=== PATIENT | male | born 1990 | race Caucasian/White ===

== ENCOUNTER 2020-12-06 22:19 | Inpatient (IN) | payer OTHER ==
[~2020-12-06 22:19] MED LIST: Iopamidol-370 76% 500 ML 1 ML ONE
[2020-12-06] MEDS ORDERED: Boostrix 0.5 ML (Tdap) VIAL ONE ×2 (22:26→22:27)
[2020-12-06] MEDS ORDERED: ceFAZolin 2 GM/DEX 5% 100 ML BAG ONE (22:26)
[2020-12-06] MEDS ORDERED: Ondansetron PF 4 MG/2 ML Vial IVP PRN (22:41)
[2020-12-06] MEDS ORDERED: Morphine 4 MG/ML VIAL SLOW IVP PRN (22:41)
[2020-12-06] MEDS ORDERED: hydrALAZINE 20 MG/ML VIAL SLOW IVP PRN (22:41)
[2020-12-06] MEDS ORDERED: Dextrose 50% Abboject 50 ML SYRINGE SLOW IVP PRN (22:41)
[2020-12-06] MEDS ORDERED: Dextrose 5% in Water 1,000 ML IV PRN (22:41)
[2020-12-06] MEDS ORDERED: Cyclobenzaprine 10 MG TAB PO PRN (22:44)
[2020-12-06] MEDS ORDERED: traMADol HCl 50 MG TAB PO PRN (22:44)
[2020-12-06] MEDS ORDERED: Ketamine 50 MG/ML (10ML VIAL) ONE (22:50)
[2020-12-06 22:57] LABS: #Basophils 0.1 thou/uL (0.0-0.2); #Eosinphils 0.4 thou/uL (0.0-0.7); #Lymphocytes 3.5 thou/uL (1.20-3.40); #Monocytes 0.5 thou/uL (0.11-0.59); #Neutrophils 6.1 thou/uL (1.40-6.50); %Eosinophils 3.4 % (0.0-10.0); %Lymphocytes 33.2 % (21.0-51.0); %Monocytes 4.7 % (0.0-10.0); %Neutrophils 57.6 % (42.0-75.0); Hemoglobin 13.3 g/dL (14.0-18.0); Mean Corpuscular HGB CONC 34.8 g/dL (32.0-36.0); Mean Platelet Volume 5.8 fL (7.4-10.4); Platelet Count 360 thou/uL (130-400); RBC Distribution Width 10.9 % (11.5-14.5); Red Blood Cell (RBC) Count 4.03 mill/uL (4.70-6.10); White Blood Cell (WBC) Count 10.5 thou/uL (4.8-10.8)
[2020-12-06 23:07] LABS: INR-International Normal Ratio 1.1; Prothrombin Time 14.4 sec (12.0-14.7)
[2020-12-06 23:15] LABS: PTT 21.2 sec (22.9-36.1)
[2020-12-06 23:20] LABS: ALT (SGPT) 30 U/L (8-55); AST (SGOT) 28 U/L (5-34); Albumin 4.2 g/dL (3.5-5.0); Alcohol 279 mg/dL (Less than 10); Alkaline Phosphatase 55 U/L (40-110); Anion Gap 20 mmol/L (10-20); BUN (Urea Nitrogen) 6 mg/dL (8.9-20.6); Bilirubin, Total 0.4 mg/dL (0.2-1.2); Calc. Creatinine Clearance 0 mL/min (70-130); Calcium 8.7 mg/dL (7.8-10.44); Carbon Dioxide 17 mmol/L (22-29); Chloride 98 mmol/L (98-107); Globulin 2.5 g/dL (2.4-3.5); Glucose 159 mg/dL (70-105); Potassium 3.3 mmol/L (3.5-5.1); Protein, Total 6.7 g/dL (6.0-8.3); Sodium 132 mmol/L (136-145)
[2020-12-06 23:40] LABS: SARS-CoV-2 NAA Rapid Test Not Detected (NotDetected)
[2020-12-06] MEDS ORDERED: Potassium Chloride 40 MEQ in Premix Bag 1 BAG IVPB SCH (23:45)
[2020-12-07] MEDS: Acetaminophen 500 MG TAB PO SCH ×5 (01:00→23:55)
[2020-12-07] MEDS: Sodium Chloride 0.9% 1,000 ML IV SCH ×4 (01:00→23:58)
[2020-12-07] MEDS: Ketorolac Tromethamine 30 MG/ML VIAL IVP SCH ×5 (01:01→23:54)
[2020-12-07] MEDS: Potassium Chloride 20 MEQ in Premix Bag 1 BAG IVPB SCH ×2 (01:03→02:47)
[2020-12-07 01:26] VITALS: BMI 24.6
[2020-12-07 02:41] LABS: Lactic Acid 3.7 mmol/L (0.5-2.2)
[2020-12-07 04:28] LABS: Amphetamine Not Detected (NotDetected); Barbiturates Screen Not Detected (NotDetected); Benzodiazepine Screen Not Detected (NotDetected); Cocaine Metabolite Screen Not Detected (NotDetected); Methadone Not Detected (NotDetected); Methamphetamine Not Detected (NotDetected); Opiate Screen Not Detected (NotDetected); Oxycodone Screen Not Detected (NotDetected); Phencyclidine (PCP) Not Detected (NotDetected); THC/Cannabinoid Screen Not Detected (NotDetected); Tricyclic Screen Not Detected (NotDetected)
[2020-12-07] MEDS ORDERED: CEFAZOLIN 2 GM in Premix Bag 1 BAG IVPB SCH (06:00)
[2020-12-07] MEDS ORDERED: ceFAZolin Sodium/D5W 2 GM in Premix Bag 1 BAG IVPB SCH ×3 (06:00→20:00)
[2020-12-07 06:14] LABS: #Eosinphils 0.1 thou/uL (0.0-0.7); #Lymphocytes 2.8 thou/uL (1.20-3.40); #Neutrophils 9.1 thou/uL (1.40-6.50); %Basophils 0.3 % (0.0-1.0); %Eosinophils 0.4 % (0.0-10.0); %Lymphocytes 21.5 % (21.0-51.0); %Monocytes 7.8 % (0.0-10.0); Hemoglobin 13.3 g/dL (14.0-18.0); Mean Corpuscular HGB CONC 34.8 g/dL (32.0-36.0); Mean Corpuscular Hemoglobin 33.1 pg (27.0-31.0); Mean Platelet Volume 5.9 fL (7.4-10.4); Platelet Count 358 thou/uL (130-400); Red Blood Cell (RBC) Count 4.03 mill/uL (4.70-6.10); White Blood Cell (WBC) Count 13.1 thou/uL (4.8-10.8)
[2020-12-07 06:48] LABS: Anion Gap 17 mmol/L (10-20); BUN (Urea Nitrogen) 5 mg/dL (8.9-20.6); Calc. Creatinine Clearance 130 mL/min (70-130); Calcium 9.2 mg/dL (7.8-10.44); Carbon Dioxide 20 mmol/L (22-29); Chloride 106 mmol/L (98-107); Glucose 97 mg/dL (70-105); Magnesium 2.1 mg/dL (1.6-2.6); Phosphorus 3.5 mg/dL (2.3-4.7); Potassium 5.1 mmol/L (3.5-5.1); Sodium 138 mmol/L (136-145)
[2020-12-07] MEDS: Famotidine/PF 20 mg/2ml Vial SLOW IVP SCH ×2 (09:10→20:34)
[2020-12-07] MEDS: Polyethylene Glycol 3350 17 GM Packet PO SCH (09:18)
[2020-12-07] MEDS: Senokot S 8.6-50 MG TAB PO SCH ×2 (09:18→20:34)
[2020-12-07] MEDS: Gabapentin 300 MG CAP PO SCH ×3 (09:18→20:34)
[2020-12-07] MEDS ORDERED: Fentanyl 100 MCG/2 ML VIAL ONE ×3 (10:42→13:32)
[2020-12-07] MEDS ORDERED: Mineral Oil Sterile 10 ML VIAL ONE (10:53)
[2020-12-07] MEDS ORDERED: Neomycin-Polymyxin 1 ML AMP ONE ×2 (10:53→12:03)
[2020-12-07] MEDS ORDERED: ceFAZolin 2 GM/DEX 5% 100 ML BAG ONE (11:07)
[2020-12-07] MEDS ORDERED: Midazolam HCl 2 mg/2 ml Vial ONE (11:15)
[2020-12-07] MEDS ORDERED: Ketorolac Tromethamine 30 MG/ML VIAL ONE (11:32)
[2020-12-07] MEDS ORDERED: Ondansetron PF 4 MG/2 ML Vial ONE (11:32)
[2020-12-07] MEDS ORDERED: Dexamethasone 20 MG/5 ML VIAL ONE (11:32)
[2020-12-07] MEDS ORDERED: Lidocaine 1% PF 5 ML VIAL ONE (11:32)
[2020-12-07] MEDS ORDERED: PROPOFOL 200 MG/20 ML VIAL ONE (11:32)
[2020-12-07] MEDS ORDERED: Meperidine HCl/PF 25 MG/ML VIAL ONE (13:08)
[2020-12-07] MEDS ORDERED: Meperidine HCl/PF 25 MG/ML VIAL SLOW IVP PRN (13:12)
[2020-12-07] MEDS ORDERED: Promethazine HCl 25 MG/ML VIAL IVPB PRN (13:12)
[2020-12-07] MEDS ORDERED: Ondansetron HCl/PF 4 MG/2 ML Vial IVP PRN (13:12)
[2020-12-07] MEDS ORDERED: Promethazine HCl 25 MG/ML VIAL IM PRN (13:12)
[2020-12-07] MEDS: traMADol HCl 50 MG TAB PO PRN ×2 (15:31→22:20)
[2020-12-08 05:07] LABS: Anion Gap 9 mmol/L (10-20); BUN (Urea Nitrogen) 5 mg/dL (8.9-20.6); Calc. Creatinine Clearance 143 mL/min (70-130); Calcium 8.7 mg/dL (7.8-10.44); Carbon Dioxide 29 mmol/L (22-29); Chloride 104 mmol/L (98-107); Glucose 119 mg/dL (70-105); Magnesium 2.3 mg/dL (1.6-2.6); Phosphorus 2.8 mg/dL (2.3-4.7); Potassium 4.2 mmol/L (3.5-5.1); Sodium 138 mmol/L (136-145)
[2020-12-08 05:11] LABS: #Lymphocytes 1.5 thou/uL (1.20-3.40); #Monocytes 1.3 thou/uL (0.11-0.59); #Neutrophils 8.6 thou/uL (1.40-6.50); %Eosinophils 0.1 % (0.0-10.0); %Lymphocytes 12.9 % (21.0-51.0); %Monocytes 11.8 % (0.0-10.0); %Neutrophils 75.2 % (42.0-75.0); Hemoglobin 10.6 g/dL (14.0-18.0); Mean Corpuscular HGB CONC 34.9 g/dL (32.0-36.0); Mean Corpuscular Hemoglobin 33.8 pg (27.0-31.0); Mean Corpuscular Volume 96.9 fL (78.0-98.0); Mean Platelet Volume 6.3 fL (7.4-10.4); Platelet Count 294 thou/uL (130-400); Red Blood Cell (RBC) Count 3.13 mill/uL (4.70-6.10); White Blood Cell (WBC) Count 11.4 thou/uL (4.8-10.8)
[2020-12-08] MEDS: Sodium Chloride 0.9% 1,000 ML IV SCH (05:51)
[2020-12-08] MEDS: Acetaminophen 500 MG TAB PO SCH (05:52)
[2020-12-08] MEDS: Ketorolac Tromethamine 30 MG/ML VIAL IVP SCH (05:52)
[2020-12-08] MEDS ORDERED: CEFAZOLIN 2 GM in Premix Bag 1 BAG IVPB SCH (06:00)
[2020-12-08] MEDS: Gabapentin 300 MG CAP PO SCH (10:00)
[2020-12-08] MEDS: Senokot S 8.6-50 MG TAB PO SCH (10:00)
[2020-12-08] MEDS: Famotidine/PF 20 mg/2ml Vial SLOW IVP SCH (10:00)
[2020-12-08] MEDS: Polyethylene Glycol 3350 17 GM Packet PO SCH (10:01)
[2020-12-08] MEDS: traMADol HCl 50 MG TAB PO PRN (10:09)
[2020-12-08 11:20] VITALS: BP 113/68; TEMP 98.3
== END 2020-12-08 13:05 | disposition home or self-care (01) | DRG 494 ==
LOC: ERS 22:19 → EEVIPCON 22:44 → SURG A 22:44
PROVIDERS: ADMIT Specialist; ATTEND Specialist
PROC: 0QSH06Z Reposition Left Tibia with Intramedullary Internal Fixation Device, Open Approach (ICD-10-PCS; principal; 2020-12-07)
DX: S82.252B Displaced comminuted fracture of shaft of left tibia, initial encounter for open fracture type I or II (principal); S82.452B Displaced comminuted fracture of shaft of left fibula, initial encounter for open fracture type I or II; F17.220 Nicotine dependence, chewing tobacco, uncomplicated; Z20.822 Contact with and (suspected) exposure to COVID-19; W34.00XA Accidental discharge from unspecified firearms or gun, initial encounter; Z98.890 Other specified postprocedural states; Z90.49 Acquired absence of other specified parts of digestive tract
CPT/HCPCS: 29505; 36415; 76000; 80048; 80053; 80306; 80307; 82550; 83605; 83735; 84100; 85025; 85610; 85730; 86850; 86900; 86901; 90471; 90715; 96374; 96375; 96376; C1713; G0390; J0690; J1100; J1885; J2175; J2250; J2270; J2405; J2704; J3010; J3370; J3480; J7050; Q9967; S0028; U0002

== ENCOUNTER 2023-08-12 10:40 | Emergency (ER) | payer OTHER, SELFPAY ==
[2023-08-12] MEDS ORDERED: HYDROcodone/Acetaminophen 7.5/325 mg Tablet ONE (11:30)
== END 2023-08-12 13:10 | disposition home or self-care (01) ==
LOC: ERS 10:40
DX: M79.641 Pain in right hand (principal); F17.290 Nicotine dependence, other tobacco product, uncomplicated
CPT/HCPCS: 29125